=== PATIENT | male | born 1980 | race Caucasian/White ===

== ENCOUNTER 2016-07-01 21:41 | Emergency (ER) | payer BC ==
[2016-07-01 23:28] LABS: Hematocrit 48 % (42-52); Hemoglobin 15.9 g/dl (14.0-18.0); Mean Corpuscular HGB Conc 34 g/dl (31-36); Mean Corpuscular Hemoglobin 29 pg (27-31); Mean Corpuscular Volume 88 fL (80-94); Mean Platelet Volume 8 um3 (7.4-10.4); Red Blood Count 5.43 10^6/ul (4.0-5.4); Red Cell Distribution Width 13 % (10.5-15); White Blood Count 6.1 10^3/ul (3.5-10.8)
[2016-07-01 23:37] LABS: Albumin 4.4 g/dL (3.2-5.2); Calcium 9.9 mg/dL (8.6-10.3); EGFR African American 119.6 (>60); Globulin 3.4 g/dL (2-4); Potassium 3.5 mmol/L (3.5-5.0); Total Bilirubin 0.6 mg/dL (0.2-1.0); Total Protein 7.8 g/dL (6.4-8.9)
[2016-07-01] MEDS ORDERED: Morphine INJ* 4 MG/ML 1 ML SYRINGE IV ONE (23:43)
[2016-07-01] MEDS ORDERED: Ondansetron INJ* 2 MG/ML VIAL IV ONE (23:43)
[2016-07-01] MEDS ORDERED: Ondansetron INJ* 2 MG/ML VIAL ONE (23:44)
[2016-07-01] MEDS ORDERED: Morphine INJ* 4 MG/ML 1 ML SYRINGE ONE (23:44)
[2016-07-02] MEDS ORDERED: Morphine INJ* 4 MG/ML 1 ML SYRINGE IV ONE (00:32)
[2016-07-02] MEDS ORDERED: NS 0.9% 1000 ML*IV.FLUID IV ONE (00:50)
[2016-07-02] MEDS ORDERED: Iohexol 300* (CONTRAST) 10 ML SDV IV ONE (00:56)
[2016-07-02] MEDS ORDERED: Ketorolac INJ* 30 MG/ML 1 ML VIAL IV PUSH ONE (01:02)
[2016-07-02] MEDS ORDERED: Ketorolac INJ* 30 MG/ML 1 ML VIAL ONE (01:03)
[2016-07-02 01:24] VITALS: BP 131/96
--- NOTE | 2016-07-02 07:36 | RAD ---
INDICATION: Left upper quadrant pain. COMPARISON: There are no prior studies available for comparison. TECHNIQUE: Multiple real-time images of the left upper quadrant were obtained. FINDINGS: The spleen is mildly enlarged and normal in shape and echogenicity. The spleen measured 13.9 x 5.9 x 11.9 cm. No focal abnormalities were seen. IMPRESSION: MILD SPLENOMEGALY.
--- NOTE | 2016-07-02 07:37 | RAD ---
INDICATION: Left upper quadrant pain. COMPARISON: There are no prior studies available for comparison. TECHNIQUE: Multiple real-time images of the pancreas were obtained. FINDINGS: The pancreas is partially obscured by overlying bowel gas. The visualized portions of the pancreas appear to be within normal limits. No ductal distention is seen. IMPRESSION: NO ABNORMALITIES ARE NOTED ALTHOUGH THE PANCREAS IS PARTIALLY OBSCURED BY OVERLYING BOWEL GAS.
--- NOTE | 2016-07-02 08:58 | RAD ---
INDICATION: Abdominal pain and vomiting. COMPARISON: Correlation is made with a prior ultrasound of the pancreas and spleen from one day earlier. TECHNIQUE: A CT scan of the abdomen and pelvis was performed with intravenous and oral contrast following intravenous injection of 150 ml of Omnipaque 300 nonionic contrast. Contiguous axial sections were obtained from the lung bases through the symphysis pubis. Images were reconstructed in the coronal and sagittal planes. FINDINGS: The lung bases are clear. No pleural effusion is present. The liver is normal in size and decreased in attenuation consistent with fatty infiltration. No significant focal hepatic abnormality is seen. No calcified gallstones are noted. The spleen is mildly enlarged. The pancreas appears to be within normal limits. The kidneys and adrenal glands are normal in size. No hydronephrosis is seen. No significant focal renal abnormality is seen. The aorta is normal in caliber and demonstrates homogeneous contrast opacification. There is a retroaortic left renal vein. No significant enlarged retroperitoneal lymph nodes are seen. The stomach, small and large bowel appear nondistended. The appendix is within normal limits. There is mild sigmoid diverticulosis without evidence for diverticulitis. No free intraperitoneal air or fluid is seen. No significant focal osseous abnormality is seen. IMPRESSION: 1. NO EVIDENCE FOR ACUTE INTRA-ABDOMINAL ABNORMALITY OR CAUSE FOR THE PATIENT'S ABDOMINAL PAIN IS SEEN. 2. HEPATIC STEATOSIS.
--- NOTE | 2016-07-06 22:46 | ED ---
Renae Cui Erika, scribed for Aleksandr Singletary MD on 07/02/16 at 0033 . Abdominal Pain/Male - HPI Summary HPI Summary: Patient is a 36-year-old male presenting to the ED with a CC of abdominal pain starting yesterday. Patient reports that for the past few months, he has experienced bouts of LUQ abdominal pain, nausea, vomiting, and diarrhea which occur a few times each month. Patient has not yet been seen for these symptoms. Patient currently rates pain a 7/10 and states it has been worse than prior episodes. Associated symptoms include diaphoresis and chills. Patient denies fever and back pain. Hx gout, depression, anxiety. Patient reports he used to drink. He smokes cigarettes. FHx pancreatic cancer, ulcers, IBS, UC. Patient works at [employer]. - History of Current Complaint Chief Complaint: EDAbdPain Stated Complaint: ABD PAIN,NAUSEA,VOMITING Time Seen by Provider: 07/01/16 22:48 Hx Obtained From: Patient Onset/Duration: Gradual Onset, Lasting Days - 1 day, Still Present Timing: Constant Severity Currently: Moderate Pain Intensity: 5 Pain Scale Used: 0-10 Numeric Location: Discrete At: LUQ Associated Signs And Symptoms: Positive: Other - diaphoresis, chills - Allergies/Home Medications Allergies/Adverse Reactions: Allergies Allergy/AdvReac Type Severity Reaction Status Date / Time No Known Allergies Allergy Verified 07/01/16 21:46 PMH/Surg Hx/FS Hx/Imm Hx Musculoskeletal History: Reports: Hx Gout Psychiatric History: Reports: Hx Anxiety, Hx Depression Infectious Disease History: No Infectious Disease History: Denies: Traveled Outside the [place] in Last 30 Days - Family History Known Family History: Positive: Other - pancreatic ca, ulcers, ibs, UC - Social History Alcohol Use: None Hx Tobacco Use: Yes Smoking Status (MU): Current Every Day Smoker Review of Systems Positive: Chills, Skin Diaphoresis. Negative: Fever Negative: Erythema Negative: Sore Throat Negative: Chest Pain Negative: Shortness Of Breath, Cough Positive: Abdominal Pain, Vomiting, Diarrhea, Nausea Negative: dysuria, hematuria Negative: Myalgia, Edema Negative: Rash Neurological: Other - No dizziness All Other Systems Reviewed And Are Negative: Yes Physical Exam - Summary Physical Exam Summary: Constitutional: Well-developed, Well-nourished, Alert. (-) Distressed Skin: Warm, Dry HENT: Normocephalic; Atraumatic Eyes: Conjunctiva normal Neck: Musculoskeletal ROM normal neck. (-) JVD, (-) Stridor, (-) Tracheal deviation Cardio: Rhythm regular, rate normal, Heart sounds normal; Intact distal pulses; The pedal pulses are 2+ and symmetric. Radial pulses are 2+ and symmetric. (-) Murmur Pulmonary/Chest wall: Effort normal. (-) Respiratory distress, (-) Wheezes, (-) Rales Abd: Soft, Mild LUQ tenderness, (-) Distension, (-) Guarding, (-) Rebound Musculoskeletal: (-) Edema Lymph: (-) Cervical adenopathy Neuro: Alert, Oriented x3 Psych: Mood and affect Normal Triage Information Reviewed: Yes Vital Signs On Initial Exam: Initial Vitals Temp Pulse Resp BP Pulse Ox 96.7 F 92 16 130/93 100 07/01/16 21:43 07/01/16 21:43 07/01/16 21:43 07/01/16 21:43 07/01/16 21:43 Vital Signs Reviewed: Yes Diagnostics - Vital Signs Vital Signs Temp Pulse Resp BP Pulse Ox 07/01/16 21:43 96.7 F 92 16 130/93 100 - Laboratory Result Diagrams: 07/01/16 23:05 07/01/16 23:05 Lab Statement: Any lab studies that have been ordered have been reviewed, and results considered in the medical decision making process. - CT CT A/P W/ CT Interpretation Completed By: Radiologist - IMAGING CHEMICAL RESEARCH TECHNICIAN - No localizing signs for acute pathology - EKG 00:56 Cardiac Rate: NL - at 68 bpm EKG Rhythm: Sinus Rhythm EKG Interpretation: No STEMI - Additional Comments Diagnostic Additional Comments: US Spleen read by Imaging school lunch monitor - Borderline splenomegaly. US pancreas read by Imaging school lunch monitor - No abnormalities noted, but the pancreas is mostly obscured by bowel gas. Re-Evaluation - Re-Evaluation First Eval Re-Evaluation Time: 04:57 Comment: Discussed all results with patient. Patient was able to tolerate PO intake. He will be discharged at this time. Abdominal Pain Fem Course/Dx - Diagnoses Provider Diagnoses: Chronic abdominal pain Discharge - Discharge Plan Condition: Stable Disposition: HOME Prescriptions: Ondansetron ODT TAB* [Zofran 4 MG Odt TAB*] 4 mg PO Q8H PRN #9 tab.odt PRN Reason: Nausea/Vomiting traMADol TAB* [Ultram*] 25 mg PO Q6HR PRN #15 tab MDD 4 PRN Reason: Pain - Moderate To Severe Patient Education Materials: Abdominal Pain (ED) Referrals: Magdi Ortiz MD [Primary Care Provider] - Fabian Boyle MD [Medical Doctor] - Additional Instructions: RETURN TO THE EMERGENCY DEPARTMENT FOR CHANGING OR WORSENING SYMPTOMS The documentation as recorded by the Renae nuno Erika accurately reflects the service I personally performed and the decisions made by Hayder childress Jerry, MD.
== END 2016-07-02 05:45 | disposition home or self-care (01) ==
LOC: ED 21:41
DX: R10.84 Generalized abdominal pain (principal); R11.2 Nausea with vomiting, unspecified; R19.7 Diarrhea, unspecified
CPT/HCPCS: 36415; 74177; 76705; 80053; 83605; 83690; 84484; 85025; 93005; 96374; 96375; 99283; J1885; J2270; J2405; Q9967

== ENCOUNTER 2016-11-17 08:46 | Emergency (ER) | payer BC ==
[2016-11-17] MEDS ORDERED: NS 0.9% 1000 ML* 1,000 ML IV ONE (09:59)
[2016-11-17] MEDS ORDERED: Famotidine IV* 10 MG/ML 2 ML (20 mg) IV ONE (09:59)
[2016-11-17] MEDS ORDERED: Ondansetron INJ* 2 MG/ML VIAL IV ONE (09:59)
--- NOTE | 2016-11-17 10:31 | RAD ---
HISTORY: Epigastric pain COMPARISONS: July 02, 2016 VIEWS: Frontal views of the abdomen. FINDINGS: BOWEL: There is a nonspecific bowel gas pattern, with nondilated small bowel gas noted. CALCULI: There are no abnormal calculi. BONES AND SOFT TISSUES: Mild degenerative changes are noted OTHER FINDINGS: The lung bases are clear. There is no subphrenic gas. IMPRESSION: NONSPECIFIC BOWEL GAS PATTERN
[2016-11-17 11:05] LABS: Hematocrit 47 % (42-52); Mean Corpuscular HGB Conc 34 g/dl (31-36); Mean Corpuscular Hemoglobin 30 pg (27-31); Mean Corpuscular Volume 89 fL (80-94); Mean Platelet Volume 9 um3 (7.4-10.4); Red Blood Count 5.31 10^6/ul (4.0-5.4); Red Cell Distribution Width 13 % (10.5-15); White Blood Count 6.5 10^3/ul (3.5-10.8)
[2016-11-17 11:27] LABS: ALT 36 U/L (7-52); AST 29 U/L (13-39); Albumin 5.1 g/dL (3.2-5.2); Alkaline Phosphatase 58 U/L (34-104); Amylase 29 U/L (29-103); Anion Gap 9 mmol/L (2-11); BUN/Creatinine Ratio 12.7 (8-20); Blood Urea Nitrogen 13 mg/dL (6-24); C Reactive Protein < 1.00 mg/L (< 5.00); CO2 Carbon Dioxide 25 mmol/L (22-32); Calcium 10.2 mg/dL (8.6-10.3); Chloride 102 mmol/L (101-111); EGFR African American 107.5 (>60); EGFR Non-African American 83.6 (>60); Globulin 3.5 g/dL (2-4); Glucose 101 mg/dL (70-100); Lipase 30 U/L (11.0-82.0); Potassium 3.6 mmol/L (3.5-5.0); Sodium 136 mmol/L (133-145); Total Protein 8.6 g/dL (6.4-8.9)
[2016-11-17 11:28] LABS: Troponin I 0.01 ng/mL (<0.04)
[2016-11-17] MEDS ORDERED: Morphine INJ* 4 MG/ML 1 ML SYRINGE IV ONE (11:59)
[2016-11-17] MEDS ORDERED: Iohexol 300* (CONTRAST) 10 ML SDV IV ONE (12:10)
--- NOTE | 2016-11-17 13:10 | RAD ---
INDICATION: Left upper quadrant abdominal pain. COMPARISON: Comparison is made with a prior CT of the abdomen and pelvis from July 02, 2016. TECHNIQUE: A CT scan of the abdomen was performed with intravenous and oral contrast following intravenous injection of 150 ml of Omnipaque 300 nonionic contrast. Contiguous axial sections were obtained from the lung bases through the tops of the iliac crests. Images were reconstructed in the coronal and sagittal planes. FINDINGS: The lung bases are clear. No pleural effusion is present. The liver is normal in size and decreased in attenuation consistent with fatty infiltration. No significant focal abnormality is seen. No calcified gallstones are noted. The spleen is mildly enlarged without focal abnormality. The pancreas appears to be within normal limits. The kidneys and adrenal glands are normal in size. No hydronephrosis is seen. There is a 1 cm cyst present in the lower pole of the left kidney. The aorta is normal in caliber and demonstrates homogeneous contrast opacification. There is a retroaortic left renal vein. No significant enlarged retroperitoneal lymph nodes are seen. The visualized portion of the small and large bowel appear nondistended. No free intraperitoneal air or fluid is seen. No significant focal osseous abnormality is seen. IMPRESSION: 1. NO EVIDENCE FOR ACUTE FINDING OR CAUSE FOR THE PATIENT'S ABDOMINAL PAIN. 2. MILD SPLENOMEGALY, UNCHANGED.
[2016-11-17 13:45] VITALS: BP 124/63
--- NOTE | 2016-11-18 12:11 | ED ---
Dejah Cui Rebecca, scribed for Benedicto Doran MD on 11/17/16 at 1001 . Abdominal Pain/Male - HPI Summary HPI Summary: Pt is a 36 y/o M who presents to ED c/o LUQ abd pain since approximately 1999 last night. Pain is currently moderate, ranked 7/10. Sx aggravated and alleviated by nothing. Additionally c/o N/V/D. Denies blood in stool, fever, chills, SOB, CP. No unusual food and no recent travel. Pt was evaluated in July and had a scope performed which revealed an "abnormal abdominal sphincter. " He was given an Rx for Prilosec which he is unable to currently take due to N/ V. - History of Current Complaint Chief Complaint: EDAbdPain Stated Complaint: ABD PAIN, VOMITING Time Seen by Provider: 11/17/16 09:45 Hx Obtained From: Patient Onset/Duration: Lasting Hours, Still Present Severity Currently: Moderate Pain Intensity: 7 Pain Scale Used: 0-10 Numeric Location: Discrete At: LUQ Radiates: No Aggravating Factor(s): Nothing Alleviating Factor(s): Nothing Associated Signs And Symptoms: Positive: Nausea, Vomiting, Diarrhea. Negative: Fever - Allergies/Home Medications Allergies/Adverse Reactions: Allergies Allergy/AdvReac Type Severity Reaction Status Date / Time No Known Allergies Allergy Verified 07/01/16 21:46 PMH/Surg Hx/FS Hx/Imm Hx Endocrine/Hematology History: Denies: Hx Diabetes History: Denies: Hx Renal Disease Musculoskeletal History: Reports: Hx Gout Psychiatric History: Reports: Hx Anxiety, Hx Depression Infectious Disease History: No Infectious Disease History: Denies: Traveled Outside the [place] in Last 30 Days - Family History Known Family History: Positive: Other - pancreatic ca, ulcers, ibs, UC - Social History Alcohol Use: None Substance Use Type: Reports: None Hx Tobacco Use: Yes Smoking Status (MU): Current Every Day Smoker Review of Systems Negative: Fever, Chills Negative: Chest Pain Negative: Shortness Of Breath Positive: Abdominal Pain - LUQ , Vomiting, Diarrhea, Nausea, Other - NEGATIVE: blood in stool All Other Systems Reviewed And Are Negative: Yes Physical Exam - Summary Physical Exam Summary: VITAL SIGNS: Reviewed. GENERAL: Patient is a well-developed and nourished male who is lying comfortable in the stretcher. ~Patient is not in any acute respiratory distress. HEAD AND FACE: Normocephalic and atraumatic. EYES: PERRLA, EOMI x 2, No injected conjunctiva. EARS: Hearing grossly intact. Ear canals and tympanic membranes are WNL. MOUTH: Dry oral mucosa. NECK: Supple, trachea is midline, no adenopathy, no JVD. CHEST: Symmetric, no tenderness at palpation LUNGS: Clear to auscultation bilaterally. No wheezing or crackles. CVS: RRR, S1 and S2 present, no murmurs or gallops appreciated. ABDOMEN: Soft, some epigastric pain and tenderness and some LUQ tenderness. No signs of distention. Positive bowel sounds. No rebound no guarding, and no masses palpated. No abdominal bruit or pulsations. EXTREMITIES: FROM in all major joints, no edema, no cyanosis or clubbing. NEURO: Alert and oriented x 3. No acute neurological deficits. Speech is normal. SKIN: Slightly clammy. Triage Information Reviewed: Yes Vital Signs On Initial Exam: Initial Vitals Temp Pulse Resp BP Pulse Ox 98.5 F 89 16 138/104 97 11/17/16 08:55 11/17/16 08:55 11/17/16 08:55 11/17/16 08:55 11/17/16 08:55 Vital Signs Reviewed: Yes - Aleksandar Coma Scale Coma Scale Total: 15 Diagnostics - Vital Signs Vital Signs Temp Pulse Resp BP Pulse Ox 11/17/16 09:02 97.6 F 87 18 125/96 95 11/17/16 08:55 98.5 F 89 16 138/104 97 - Laboratory Lab Results: Lab Results 11/17/16 11/17/16 11/17/16 Range/Units 10:51 10:51 10:51 WBC 6.5 (3.5-10.8) 10^3/ul RBC 5.31 (4.0-5.4) 10^6/ul Hgb 16.0 (14.0-18.0) g/dl Hct 47 (42-52) % MCV 89 (80-94) fL MCH 30 (27-31) pg MCHC 34 (31-36) g/dl RDW 13 (10.5-15) % Plt Count 224 (150-450) 10^3/ul MPV 9 (7.4-10.4) um3 Neut % (Auto) 70.5 (38-83) % Lymph % (Auto) 19.5 L (25-47) % Kerr % (Auto) 7.2 (1-9) % Eos % (Auto) 1.9 (0-6) % Baso % (Auto) 0.9 (0-2) % Absolute Neuts (auto) 4.6 (1.5-7.7) 10^3/ul Absolute Lymphs (auto) 1.3 (1.0-4.8) 10^3/ul Absolute Monos (auto) 0.5 (0-0.8) 10^3/ul Absolute Eos (auto) 0.1 (0-0.6) 10^3/ul Absolute Basos (auto) 0.1 (0-0.2) 10^3/ul Absolute Nucleated RBC 0 10^3/ul Nucleated RBC % 0.1 Sodium 136 (133-145) mmol/L Potassium 3.6 (3.5-5.0) mmol/L Chloride 102 (101-111) mmol/L Carbon Dioxide 25 (22-32) mmol/L Anion Gap 9 (2-11) mmol/L BUN 13 (6-24) mg/dL Creatinine 1.02 (0.67-1.17) mg/dL Est GFR ( Amer) 107.5 (>60) Est GFR (Non-Af Amer) 83.6 (>60) BUN/Creatinine Ratio 12.7 (8-20) Glucose 101 H (70-100) mg/dL Lactic Acid 1.0 (0.5-2.0) mmol/L Calcium 10.2 (8.6-10.3) mg/dL Magnesium 2.0 (1.9-2.7) mg/dL Total Bilirubin 0.90 (0.2-1.0) mg/dL AST 29 (13-39) U/L ALT 36 (7-52) U/L Alkaline Phosphatase 58 (34-104) U/L Troponin I 0.01 (<0.04) ng/mL C-Reactive Protein < 1.00 (< 5.00) mg/L Total Protein 8.6 (6.4-8.9) g/dL Albumin 5.1 (3.2-5.2) g/dL Globulin 3.5 (2-4) g/dL Albumin/Globulin Ratio 1.5 (1-3) Amylase 29 (29-103) U/L Lipase 30 (11.0-82.0) U/L Result Diagrams: 11/17/16 10:51 11/17/16 10:51 Lab Statement: Any lab studies that have been ordered have been reviewed, and results considered in the medical decision making process. - Radiology Abd XR Xray Interpretation: No Acute Changes - NONSPECIFIC BOWEL GAS PATTERN Radiology Interpretation Completed By: Radiologist - CT Abd CT CT Interpretation: No Acute Changes - 1. NO EVIDENCE FOR ACUTE FINDING OR CAUSE FOR THE PATIENT'S ABDOMINAL PAIN. 2. MILD SPLENOMEGALY, UNCHANGED. CT Interpretation Completed By: Radiologist - EKG 1105 Cardiac Rate: NL - 68 bpm EKG Rhythm: Sinus Rhythm ST Segment: Normal Re-Evaluation - Re-Evaluation First Eval Re-Evaluation Time: 13:31 Change: Improved Comment: Pain is now 0/10. Abdominal Pain Fem Course/Dx - Course Assessment/Plan: Pt is a 36 y/o M who presents to ED c/o LUQ abd pain since approximately 1999 last night. Pain is currently moderate, ranked 7/10. Sx aggravated and alleviated by nothing. Additionally c/o N/V/D. Denies blood in stool, fever, chills, SOB, CP. No unusual food and no recent travel. Pt was evaluated in July and had a scope performed which revealed an "abnormal abdominal sphincter." He was given an Rx for Prilosec which he is unable to currently take due to N/V. Test results w/o any significant abnormalities. Abd XR reveals a nonspecific bowel gas pattern. The pt was given IV fluids and Zofran and Pepcid for his sx. He continues to have epigastric pain, therefore decided to an Abd/Pel CT. Pt was given morphine for the pain and the sx subsided. CT reveals 1. NO EVIDENCE FOR ACUTE FINDING OR CAUSE FOR THE PATIENT' S ABDOMINAL PAIN. 2. MILD SPLENOMEGALY, UNCHANGED. Therefore, since the pt is feeling better and Abd/Pel CT shows no acute antra-abdominal pathology, the pt will be D/C to home to follow up with PCP. Pt is hemodynamically stable and A& Ox3. I discussed all the findings and test results with the patient. Patient was instructed to return to the emergency room immediately if any of the symptoms return or worsens. They were explained the possibility of an early abdominal pathology which was not detected at this time despite the physical exam and testing. They understand and agree. Abdominal exam before discharge: Soft, NT. No signs of distention. BS present. No rebound no guarding, and no masses palpated. Patient is alert and oriented and hemodynamically stable. Patient is to follow up with primary care physician in the next 2 to 3 days. Patient agree and understands. - Diagnoses Differential Diagnosis/HQI/PQRI: Appendicitis, Bowel Obstruction, Constipation, Gall Bladder Disease, Renal Colic, Urinary Tract Infection Provider Diagnoses: Abdominal pain, Nausea and vomiting Discharge - Discharge Plan Condition: Stable Disposition: HOME Prescriptions: Ondansetron TAB* [Zofran 4 MG Tab*] 4 mg PO Q6H PRN #10 tab PRN Reason: Vomiting Patient Education Materials: Abdominal Pain (ED), Acute Nausea and Vomiting (ED ) Referrals: Angel FLETCHER,Magdi Villa [Primary Care Provider] - 3 Days The documentation as recorded by the Dejah nuno Rebecca accurately reflects the service I personally performed and the decisions made by , Benedicto Doran MD.
== END 2016-11-17 13:47 | disposition home or self-care (01) ==
LOC: ED 08:46
DX: R10.12 Left upper quadrant pain (principal); R11.2 Nausea with vomiting, unspecified; F17.210 Nicotine dependence, cigarettes, uncomplicated; R19.7 Diarrhea, unspecified
CPT/HCPCS: 36415; 74020; 74160; 80053; 82150; 83605; 83690; 83735; 84484; 85025; 86140; 93005; 96374; 96375; 99283; J2270; J2405; Q9967